=== PATIENT | female | born 1980 | race Caucasian/White ===

== ENCOUNTER 2018-02-15 19:43 | Emergency (ER) | payer MEDICAID ==
[~2018-02-15] VITALS: Ht 152.4 cm; Wt 68.0 kg
[2018-02-15 20:44] VITALS: BP 141/80; Ht 152.4 cm; Wt 68.0 kg
== END 2018-02-15 23:04 | disposition left against medical advice (07) ==
LOC: ED 19:43
DX: Z53.21 Procedure and treatment not carried out due to patient leaving prior to being seen by health care provider (principal)